=== PATIENT | female | born 1995 | race African-American/Black ===

== ENCOUNTER 2020-11-10 11:49 | Emergency (ER) | payer OTHER, SELFPAY ==
[2020-11-10 12:03] VITALS: BP 107/66; PULSE 73; RESP 18; TEMP 37.2; O2SAT 100
--- NOTE | 2020-11-10 12:55 | ED.ABDPAIN ---
HPI - Abdominal Pain General Chief Complaint: Abdominal Pain Stated Complaint: Iud Pain Time Seen by Provider: 11/10/20 12:30 Source: patient Mode of arrival: ambulatory Limitations: no limitations History of Present Illness HPI narrative: Isai Dorantes is a 25-year-old female with no PMH who comes to [facility] complaining of mild spotting and lower abdominal pain for the last 3 days. She has a Mirena IUD which she is unhappy with but she has had it for 3 years and when it is removed she will not have another one inserted. She has had some intermittent spotting while having the Mirena in; she is able to feel the strings of the Mirena and has no abnormal vaginal discharge. She wants to be checked for an urinary tract infection and just an STD check-no treatment was tested positive Related Data Home Medications Medication Instructions Recorded Confirmed No Home Medications 11/10/20 11/10/20 Allergies Allergy/AdvReac Type Severity Reaction Status Date / Time No Known Allergies Allergy Verified 11/10/20 12:28 Review of Systems Review of Systems: Narrative: CONSTITUTIONAL: Denies fever, chills, sweats. EYES: Denies visual changes, redness, discharge. ENT: Denies rhinorrhea, congestion, sore throat, otalgia. CARDIOVASCULAR: Denies chest pain, palpitations, edema. RESPIRATORY: Denies dyspnea, wheezing, cough GASTROINTESTINAL: Mild abdominal pain, no nausea, vomiting, diarrhea. GENITOURINARY: Denies dysuria, hematuria, abnormal discharge SKIN: Denies rash or itching. NEUROLOGIC: Denies numbness, or focal weakness. PSYCHIATRIC: Denies anxiety or depression. PMFSH Past Medical History Medical History No acute medical problems Family History Family History Other Hypertension Social History Social History (Updated 11/10/20 @ 13:01 by Shelly Sims CNP) Smoking status: Never smoker Alcohol intake: current Comments At time of signature, I agree with nursing past medical, surgical, social and family history. There is no relevant family history pertinent to the presenting complaint. Exam Narrative: Exam Narrative: GENERAL: This is a well-nourished, well-developed patient, in mild distress. HEAD: normocephalic, atraumatic. EYES: Sclera clear/white. Vision is grossly intact. EARS: External ears normal, . Hearing grossly intact. NOSE: External nose normal without nasal discharge, nares without redness, no rhinorrhea. THROAT: Mucous membranes moist, NECK: Neck supple, non-tender CARDIOVASCULAR: Regular rate and rhythm without murmurs, gallops, or rubs. RESPIRATORY: Clear to auscultation. Breath sounds equal bilaterally. No wheezes, rales, or rhonchi. GASTROINTESTINAL: Abdomen soft, non-tender, SKIN: warm, intact with no suspicious lesions or rash, good texture and turgor. NEURO: awake, alert, and oriented to person, place and time. There were no obvious focal neurologic abnormalities. Steady gait EXTREMITIES: Normal range of motion. BACK: Nontender without deformity Course Course Emergency Course: Patient here for UA and STD check with occasional spotting with Mirena IUD UA-within normal limits Urine specimen sent for chlamydia, gonorrhea and trichomoniasis Patient has no vaginal discharge and does not feel like she needs to pursue additional testing Call patient with STD results Vital Signs Vital signs: Vital Signs Temperature 98.9 F 11/10/20 12:03 Pulse Rate 73 11/10/20 12:03 Respiratory Rate 18 11/10/20 12:03 Blood Pressure 107/66 11/10/20 12:03 Pulse Oximetry 100 11/10/20 12:03 Temperature 98.9 F 11/10/20 12:03 Pulse Rate 73 11/10/20 12:03 Respiratory Rate 18 11/10/20 12:03 Blood Pressure 107/66 11/10/20 12:03 Pulse Oximetry 100 11/10/20 12:03 MDM - Abdominal Pain Differential Diagnosis Differential diagnosis: Likely abdominal pain
== END 2020-11-10 13:07 | disposition home or self-care (01) ==
PROVIDERS: Emergency Provider Nurse Practitioner
DX: R10.30 Lower abdominal pain, unspecified (principal)
CPT/HCPCS: 81003; 87491; 87591; 87661; 99214; G0463

== ENCOUNTER 2022-03-23 10:34 | Emergency (ER) | payer OTHER, SELFPAY ==
--- NOTE | ~2022-03-23 | XR_ITS ---
EXAMINATION: XR chest 2V 03/23/2022 11:41 INDICATION: Shortness of breath PROCEDURE: 2 view chest COMPARISON: No prior studies for comparison. FINDINGS: The lungs are clear. The cardiomediastinal silhouette is within normal limits. There are no pleural effusions. There is no pneumothorax suspected. IMPRESSION: 1: NO ACUTE CARDIOPULMONARY DISEASE. Reviewed, dictated and finalized at location B.
[2022-03-23 10:49] VITALS: BP 112/65; PULSE 88; RESP 16; TEMP 36.9; O2SAT 100
--- NOTE | 2022-03-23 11:33 | ED.GENADULT ---
HPI - General Adult General Chief complaint: Chest Pain Stated complaint: sob Time Seen by Provider: 03/23/22 11:28 Source: patient, RN notes reviewed and old records reviewed Mode of arrival: ambulatory Limitations: no limitations History of Present Illness HPI narrative: 26-year-old female presents to the [facility] with complaints when she woke up states that she was short of breath and felt like she was drowning. Denies any significant chest pain. Reports that feels like sometimes there is fluid in her lungs. Has a history of asthma as a young child. Denies any fevers. Denies any abdominal pain. Requesting a work Related Data Home Medications Medication Instructions Recorded Confirmed No Home Medications 11/10/20 11/10/20 Allergies Allergy/AdvReac Type Severity Reaction Status Date / Time No Known Allergies Allergy Verified 11/10/20 12:28 Review of Systems Review of Systems: All systems reviewed & are unremarkable except as noted in HPI and below Constitutional: Constitutional: Reports no additional constitutional complaints, Denies chills and Denies fever(s) Eyes: Eyes: Reports no additional eye complaints ENT: Reports system reviewed and no additional complaints, except as documented Cardiovascular: Cardiovascular: Reports no additional cardiovascular complaints Respiratory: Respiratory: Reports as per HPI and Reports chest congestion Gastrointestinal: Gastrointestinal: Reports no additional gastrointestinal complaints Musculoskeletal: Musculoskeletal: Reports no additional musculoskeletal complaints Integumentary/Breasts: Skin/Breast: Reports system reviewed and no additional complaints, except as docu Neurologic: Reports system reviewed and no additional complaints, except as documented Psychiatric: Psychiatric: Reports no additional psychiatric complaints Allergic/Immunologic: Allergic/Immunologic: Reports no additional allergic/immunologic complaints PMFSH Past Medical History Medical History No acute medical problems Family History Family History Other Hypertension Social History Social History Smoking status: Never smoker Alcohol intake: current Comments At the time of my signature, I reviewed and agree with the nursing past medical, surgical, social, and family history. There is no relevant family history pertinent to the patient complaint. Exam Const: General: healthy appearing, no acute distress, alert and well nourished Nutritional Appearance: well nourished Orientation/consciousness: patient oriented x3 Limitations: no limitations HENMT: Head: normal to inspection Ears: external ears normal, TM's normal bilaterally and EAC's normal Face/Nose/Sinus: Normal external nose present and Normal nares present Mouth: Yes Normal oral and palatal mucosa present, Yes lip normal and Yes moist mucous membranes Throat: posterior oropharynx normal and uvula midline Eyes: General: appearance normal, both eyes and all related structures Pupils: Equal, round and reactive pupils present Neck: Neck: normal visual inspection, no lymphadenopathy and no meningeal signs Chest: Chest palpation & inspection: normal inspection of the chest Resp: Effort & Inspection: normal respiratory effort and no use of accessory muscles Auscultation: clear to auscultation bilaterally, no crackles, no rales, no rhonchi and no wheezes Cardio: Rate: regular rate Rhythm: regular rhythm GI: GI Palp: Yes Soft to palpation and No Tenderness to palpation present (GI) Skin: General skin exam: normal color Rashes: no rashes Wounds: no wounds Neuro: General: patient oriented x3, moves all extremities, no meningeal signs and no focal motor deficits Cranial nerves: Yes Equal, round and reactive pupils present Speech: normal speech Gait exam
== END 2022-03-23 12:09 | disposition home or self-care (01) ==
PROVIDERS: Emergency Provider Nurse Practitioner
DX: R07.89 Other chest pain (principal)
CPT/HCPCS: 71046; 99213; G0463

== ENCOUNTER 2022-06-26 12:58 | Emergency (ER) | payer OTHER, SELFPAY ==
--- NOTE | 2022-06-26 13:01 | ED.ABDPAIN ---
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 She reports she last had intercourse last Saturday and her symptoms of white milky discharge and foul odor started on Saturday. She states that this is not a new sexual partner for her. States the pain is sharp pain and occasionally is over the left lower abdomen as well. Denies any discomfort at this time. She denies any nausea or vomiting. She denies any chance of as she has the Mirena. Last bowel movement was this morning and normal. She is not actively having menses due to Mirena. No urinary frequency, urgency, or dysuria. No fever or chills. Related Data Allergies Allergy/AdvReac Type Severity Reaction Status Date / Time No Known Allergies Allergy Verified 06/26/22 13:12 Review of Systems Review of Systems: Pertinent positives per HPI. Patient denies any fever, chills, rash, headache, visual changes, dizziness, cough, runny nose, sore throat, shortness of breath, chest pain, palpitations, nausea, vomiting, diarrhea, constipation, urinary issues. PMFSH Past Medical History Medical History No acute medical problems Family History Family History Other Hypertension Social History Social History Smoking status: Never smoker Alcohol intake: current Comments At the time of my signature, I reviewed and agree with the nursing past medical, surgical, social, and family history. There is no relevant family history pertinent to the patient complaint. Exam Narrative: General: Well-developed, well nourished, in no apparent distress. Head: Normocephalic, atraumatic. Cardio: Regular rate and rhythm, s1 and s2 normal, no murmur appreciated. Resp: Clear to auscultation bilaterally, no rhonchi, rales, wheezing or rubs. Abdomen: Soft, pliable, bowel sounds present in all quadrants, non-tender to palpation, no organomegly, no CVAT tenderness : Pelvic exam performed with (Cyndy BOWERS) at bedside. Verbal consent obtained from patient. Normal external female genitalia with normal hair distribution without lesions or masses, Urinary meatus: patent without discharge, Vagina: No lesions or masses, thin white discharge Cervix: pink without mass, lesions, discharge, or tenderness. Adnexa: without palpable mass or tenderness. Vaginal swabs obtained and sent to the lab. Course Course Emergency Course: Portions of this record may have been created with voice recognition software. Level of Care: Express Care Visit Vital Signs Vital signs: Vital Signs Temperature 36.2 C L 06/26/22 13:06 Pulse Rate 119 H 06/26/22 13:06 Respiratory Rate 16 06/26/22 13:06 Blood Pressure 105/45 L 06/26/22 13:06 Pulse Oximetry 100 06/26/22 13:06 Oxygen Delivery Room Air 06/26/22 13:06 Temperature 36.2 C L 06/26/22 13:06 Pulse Rate 119 H 06/26/22 13:06 Respiratory Rate 16 06/26/22 13:06 Blood Pressure 105/45 L 06/26/22 13:06 Pulse Oximetry 100 06/26/22 13:06 Oxygen Delivery Room Air 06/26/22 13:06 Vital signs reviewed MDM - Abdominal Pain MDM Narrative Medical decision making narrative: At the time of visit patient is resting comfortably on the exam table. UA shows 1+ leukocyte, 2+ blood, and 2+ protein. UA preg test was negative. Will send urine for culture. Pelvic exam or performed and swabs were obtained for chlamydia, gonorrhea, trich, and BV. Shared decision making discussed with the patient regarding treatment of
[2022-06-26 13:06] VITALS: BP 105/45; PULSE 119; RESP 16; TEMP 36.2; O2SAT 100
--- NOTE | 2022-06-26 13:42 | PC.NURSE ---
Assisted DEPARTMENT SPECIALIST with pelvic exam. Swabs collected. DEPARTMENT SPECIALIST updated pt about UA results and plan to treat UTI. Pt wishes to be treated prophylactically for STD's at this time as this is my only day off .
[2022-06-26] MEDS: cefTRIAXone 500 MG, LIDOCAINE HCL 1% LOCAL INJ 1 ML IM (13:45)
== END 2022-06-26 13:56 | disposition home or self-care (01) ==
PROVIDERS: Emergency Provider Nurse Practitioner Family
DX: N30.01 Acute cystitis with hematuria (principal); N89.8 Other specified noninflammatory disorders of vagina
CPT/HCPCS: 81003; 81025; 87070; 87086; 87088; 87491; 87591; 87661; 96372; 99214; G0463; J0696